=== PATIENT | male | born 1995 | race Caucasian/White ===

== ENCOUNTER 2020-07-03 10:44 | Emergency (ER) | payer BC, SELFPAY ==
--- NOTE | ~2020-07-03 | XR_ITS ---
EXAMINATION: XR finger 3rd LT min 2V DATE: 07/03/2020 11:44 INDICATION: 2 days of swelling at the left third proximal interphalangeal joint TECHNIQUE: Dorsal palmar, lateral and 2 oblique views of the left third digit were obtained COMPARISON: None FINDINGS: Alignment is normal. No fracture. Joint spaces are normal. Nonspecific soft tissue tissue swelling in the third digit centered about the proximal interphalangeal joint. No soft tissue gas or radiopaque foreign bodies. IMPRESSION: 1. No osseous abnormality. Reviewed, dictated and finalized at location A. IMPRESSION: 1. No osseous abnormality.
[2020-07-03 11:33] VITALS: BP 140/72; PULSE 81; RESP 12; TEMP 36.6; O2SAT 99
--- NOTE | 2020-07-03 11:57 | ED.GENADULT ---
HPI - General Adult General Chief complaint: Extremity Injury, Upper Stated complaint: Extremity injury,finger Time Seen by Provider: 07/03/20 11:58 Source: patient Mode of arrival: ambulatory Limitations: no limitations History of Present Illness HPI narrative: 25-year-old male patient presents to the [facility] with complaints of middle finger pain since yesterday. [place] states that he was on a rope swing and got his middle finger caught on the second knob of the rope swing and states that he lost his wing coverer and fell and that his finger got caught. Patient states that he has been icing it and taking some Tylenol for the pain. Patient concerned about it being broken since there is bruising present. Patient states he has limited range of motion especially to the middle knuckle area. Patient denies any numbness or tingling to the finger. Patient is left-hand dominant. Related Data Home Medications Medication Instructions Recorded Confirmed atomoxetine [Strattera] 40 mg PO DAILY 07/03/20 07/03/20 Allergies Allergy/AdvReac Type Severity Reaction Status Date / Time amoxicillin [From Augmentin] AdvReac Diarrhea Verified 07/03/20 12:04 clavulanic acid AdvReac Diarrhea Verified 07/03/20 12:04 [From Augmentin] Review of Systems Review of Systems: Narrative: CONSTITUTIONAL: Denies fever, chills, or sweats. EYES: Denies visual changes, redness, or discharge. ENT: Denies rhinorrhea, congestion, sore throat, or otalgia. CARDIOVASCULAR: Denies chest pain, palpitations, or edema. RESPIRATORY: Denies cough or dyspnea. GASTROINTESTINAL: Denies abdominal pain, nausea, vomiting, or diarrhea. GENITOURINARY: Denies dysuria or hematuria. SKIN: Denies rash or itching. MUSCULOSKELETAL: Denies back pain, joint pain, or myalgia. Positive left third finger pain NEUROLOGIC: Denies headache, numbness, or weakness. PSYCHIATRIC: Denies anxiety or depression. PMFSH Social History Social History Smoking status: Current every day smoker Alcohol intake: current Gender identity (if verbalized by the patient): Female Exam Narrative: Exam Narrative: GENERAL: Well-appearing, well-nourished, and in no acute distress. HEAD: Normocephalic, atraumatic. EYES: PERRLA and EOMI. ENT: Nares clear, no rhinorrhea or epistaxis. Mucous membranes moist. NECK: Supple. No lymphadenopathy CHEST: Clear to auscultation. No respiratory distress. HEART: Regular rate and rhythm. No murmur heard. Normal peripheral pulses. ABDOMEN: Soft, nontender, nondistended, normal active bowel sounds. EXTREMITIES: The L hand is without obvious asymmetry or deformity when compared to the R hand. The left third digit has swelling to the middle phalange E, PIP joint with slight erythema over this joint. No warmth present. Patient has decreased range of motion to the middle PIP joint and tightness. Normal range of motion to the DIP joint and normal sensation to the distal portion of the finger. No open wounds, nail avulsion, tissue avulsion, partial or complete amputation, subungual hematoma, bony deformity. Normal cascade of fingers except for the left third digit. Normal flexion and extension of all other fingers. FDS and FDP intact aganist restistance. Pulses and cap refill. SKIN: Warm, dry, no rash. NEURO: No focal deficits. Alert and oriented x3. Course Vital Signs Vital signs: Vital Signs Temperature 36.6 C 07/03/20 11:33 Pulse Rate 81 07/03/20 11:33 Respiratory Rate 12 07/03/20 11:33 Blood Pressure 140/72 07/03/20 11:33 Pulse Oximetry 99 07/03/20 11:33 Temperature 36.6 C 07/03/20 11:33 Pulse Rate 81 07/03/20 11:33 Respiratory Rate 12 07/03/20 11:33 Blood Pressure 140/72 07/03/20 11:33 Pulse Oximetry 99 07/03/20 11:33 Vital signs reviewed. The patient has been informed that they may have pre-hypertension or Hypertension based on a BP reading in the department. I recomm
[2020-07-03 12:07] VITALS: BP 108/72; PULSE 96; RESP 16; TEMP 36.6; O2SAT 100
== END 2020-07-03 12:16 | disposition home or self-care (01) ==
PROVIDERS: Emergency Provider Nurse Practitioner Family
DX: S63.633A Sprain of interphalangeal joint of left middle finger, initial encounter (principal); X58.XXXA Exposure to other specified factors, initial encounter; F17.200 Nicotine dependence, unspecified, uncomplicated
CPT/HCPCS: 29130; 73140; 99213; G0463

== ENCOUNTER 2020-11-01 08:00 | Outpatient (RCR) | payer BC, SELFPAY ==
--- NOTE | 2020-08-25 09:02 | OTOPEVAL ---
OCCUPATIONAL THERAPY INITIAL EVALUATION: 08/25/2020 Thank you for referring Nader Valentino to [facility].? The patient is scheduled to be seen for therapy? 2 x/week for 6 weeks. Please review, sign, date and return this plan of care STACY. I agree with and certify that the following plan of care is medically necessary. Referring Physician Date Attending Provider: Shaheen Rodriguez MD *OT Outpatient Evaluation Start: 08/25/20 07:41 Freq: Status: Active Protocol: Document 08/25/20 07:54 KJL (Rec: 08/25/20 09:01 KJL [id number]) Therapy Assessment Status Assessment Status Assessment Status Evaluation Evaluation Information Problem Diagnosis Boutonniere of L UE digit 3 Onset 07/02/2020 Cause Fall Additional Evaluation Detail Pt jumped from rope swing and finger afterward becoming swollen and sore. Pt went to ER and got an x-ray done which showed no acute fracture. Boutonniere deformity started next day on 07/03/2020. 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 Pt reports is still painful occasionally and if finger is hit on anything finger becomes more sore and painful. Pt reports painful when attempting PIP extension, DIP extension, DIP flexion. 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 Activity of Daily Living Ability Independent Indoor/Home Mobility Independent Community Mobility Independent Stairs Ability Independent Functional Cognition (Planning, Shopping Independent , Taking Medications) Driving Yes Home Setting Home Type House Living Situation With Parent Support Available Local Family Support Mobility Assistive Devices (Used Last 3 None Months) Pain Assessment Timing of Pain Assessment Timing of Pain Assessment Assessment Self Report Self Report Pain Level 0 Pain Score Pain Score 0: Self Report Upper Extremity Range of Motion General Upper Extremity Range of Motion Reason Not Measured WNL/Left,WNL/Right Gross Upper Extremity Range of Motion Pt bilateral
--- NOTE | 2020-09-05 08:14 | PCOTNOTE ---
Patient cancelled today due to following up with MD today. Will see later this week on Saturday.
--- NOTE | 2020-10-05 09:27 | OTOPEVAL ---
OCCUPATIONAL THERAPY RE-EVALUATION REPORT 10/05/2020 Patient presents after 6 weeks of PIP immobilization in extension for treatment of central tendon injury. At rest his finger is straight and he does have stiffness when trying to flex the finger into a full fist or hook fist. Today we discussed a splint weaning schedule over the next 4 weeks. 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 Plan to have patient follow up in 4 weeks to evaluate for discharge. No treatments have been scheduled during these 4 weeks unless the patient needs to return for splint modifications if the swelling in his finger changes. Thank you for referring Nader Valentino to [facility].? The patient is scheduled to be seen for therapy? 0-1x/week for 4 weeks. Re-evaluation scheduled fro 11/01/20. Please review, sign, date and return this Re-Evaluation Report STACY. I agree with and certify that the following plan of care is medically necessary. Referring Physician Date Referring Provider: Shaheen Rodriguez MD *OT Outpatient Re-Evaluation Evaluation Information Diagnosis Boutonniere of L hand, digit 3 Onset 07/02/2020 Subjective Information Nader has been wearing a Query Text:As Reported By Patient/ splint over the left MF PIP Family joint in 0* flexion x6 weeks. In the beginning he had difficulty wearing the splint when working or playing video games. The past 4 weeks he has been very compliant with immobilization. He states his finger is stiff. Pain Assessment Timing of Pain Assessment Timing of Pain Assessment Re-assessment Pain Scale Pain Scale Used Numeric (1 - 10) Self Report Pain Assessment Left Finger, Middle Reported Pain Level 0 Other Pain Description Stiff Lowest Pain Intensity 0 Greatest Pain Intensity 4 Other Pain Aggravating Factors Cold weather Pain Score Pain Score 0: Self Report Upper Extremity Range of Motion Finger Range of Motion Left Middle Finger MCP Joint Flexion - Active 90 Middle Finger MCP Joint Extension - 0 Active Middle Finger PIP Joint Flexion - Active 85 Middle Finger PIP Joint Extension - 0 Active Middle Finger DIP Joint Flexion - Active 65 Middle Finger DIP Joint Extension - 0 Active Middle Finger Tip to Distal Palmar 2 Crease - Active Finger Range of Motion Comments At rest his MF is straight at the PIP and DIP joints. This has improved from 35* flexion at the PIP and 15* hyperextension at the DIP at the start of care. Hand Media Consultant Outside Sales/Pinch Strength Assessment Hand Left Media Consultant Outside Sales Strength (lbs)
--- NOTE | 2020-11-01 08:29 | OTOPEVAL ---
OCCUPATIONAL THERAPY DISCHARGE NOTE 11/01/2020 Thank you for referring Nader Valentino to [facility].? The patient is being discharged today from OT. He has had no return in an extension lag in the PIP joint of the left middle finger and has no functional limitations at this time. He is independent with all materials and with pain management. Please review, sign, date and return this discharge note STACY. I agree with and certify that the following plan of care is medically necessary. Referring Physician Date Referring Provider: Shaheen Rodriguez MD Assessment Status Discharge Problem Diagnosis Boutonniere of L hand, digit 3 Onset 07/02/2020 Subjective Information Nader has been wearing a Query Text:As Reported By Patient/ splint over the left MF PIP Family joint in 0* flexion x6 weeks and has been weaning off the splint x4 weeks. He states he is down to wearing the splint about 50% of the day - he sleeps with it on, leaves it off for most of the day, and puts its back on later in the day. He states at work he uses his hands a lot for gripping, lifting, and carrying. He reports no functional limitations, except some instances of pain in the PIP of the joint with gripping. He also notes that cold exacerbates his pain. Pain Assessment Timing of Pain Assessment Timing of Pain Assessment Re-assessment Pain Scale Pain Scale Used Numeric (1 - 10) Self Report Pain Assessment Left Finger, Middle Reported Pain Level 5 Pain Description Aching Other Pain Description stiff Lowest Pain Intensity 0 Greatest Pain Intensity 10 Pain Score Pain Score 5: Self Report Additional Pain Score Comments Patient reports an instance of 10/10 pain due to accidentally hitting his hand/ MF against his truck. Interventions Used Interventions Used By Clinicians Education Upper Extremity Range of Motion Finger Range of Motion Left Middle Finger MCP Joint Flexion - Active 90 Middle Finger MCP Joint Extension - 0 Active Middle Finger PIP Joint Flexion - Active 85 Middle Finger PIP Joint Extension - 0 Active Middle Finger DIP Joint Flexion - Active 75 Middle Finger DIP Joint Extension - -5 Active Middle Finger Tip t
== END 2020-11-10 15:40 | disposition home or self-care (01) ==
LOC: ANHOT 08:00
PROVIDERS: Visit Provider Plastic Surgery
DX: M20.022 Boutonniere deformity of left finger(s) (principal)
CPT/HCPCS: 97018; 97110; 97140; 97165; L3921; L3933

== ENCOUNTER 2021-05-14 10:04 | Emergency (ER) | payer BC, SELFPAY ==
[2021-05-14 10:13] VITALS: BP 145/83; PULSE 82; RESP 16; TEMP 36.5; O2SAT 99
--- NOTE | 2021-05-14 10:20 | ED.BACK ---
HPI - Back Pain/Injury General Chief Complaint: Back Pain/Injury Stated Complaint: back pain Time Seen by Provider: 05/14/21 10:20 Source: patient, RN notes reviewed and old records reviewed Mode of arrival: ambulatory Limitations: no limitations History of Present Illness HPI Narrative: 26-year-old male presents to the [facility] with complaints of back pain, patient denies any injury. States he was at work when he felt a strain in his lower back. No trauma. No loss or retention of bowel or bladder. No numbness or tingling in extremities. Walks with a slower gait due to lower back pain. Denies any past medical or surgical history. States he took Tylenol yesterday approximately 4 PM, no other treatment MD elicited complaint: back pain Related Data Allergies Allergy/AdvReac Type Severity Reaction Status Date / Time amoxicillin [From Augmentin] AdvReac Diarrhea Verified 07/03/20 12:04 clavulanic acid AdvReac Diarrhea Verified 07/03/20 12:04 [From Augmentin] Review of Systems Review of Systems: All systems reviewed & are unremarkable except as noted in HPI and below Constitutional: Constitutional: Reports no additional constitutional complaints, Denies chills and Denies fever(s) Eyes: Eyes: Reports no additional eye complaints Cardiovascular: Cardiovascular: Reports no additional cardiovascular complaints and Denies chest pain Respiratory: Respiratory: Reports no additional respiratory complaints, Denies cough, Denies dyspnea and Denies wheezing Gastrointestinal: Gastrointestinal: Reports no additional gastrointestinal complaints, Denies abdominal pain, Denies nausea and Denies vomiting Genitourinary: Genitourinary: Reports no additional male genitourinary complaints, Denies urinary frequency and Denies urinary incontinence Musculoskeletal: Musculoskeletal: Reports as per HPI and Reports back pain (Lumbar) Integumentary/Breasts: Skin/Breast: Reports system reviewed and no additional complaints, except as docu, Denies erythema and Denies rash Neurologic: Reports system reviewed and no additional complaints, except as documented, Denies headache(s), Denies focal weakness, Denies numbness and Denies weakness Psychiatric: Psychiatric: Reports no additional psychiatric complaints Allergic/Immunologic: Allergic/Immunologic: Reports no additional allergic/immunologic complaints PMFSH Social History Social History Smoking status: Current every day smoker Alcohol intake: current Gender identity (if verbalized by the patient): Male Comments At the time of my signature, I reviewed and agree with the nursing past medical, surgical, social, and family history. There is no relevant family history pertinent to the patient complaint. Exam Const: General: healthy appearing, no acute distress and alert Nutritional Appearance: well nourished and obese Orientation/consciousness: patient oriented x3 Limitations: no limitations HENMT: Head: normal to inspection Eyes: Pupils: Equal, round and reactive pupils present Neck: Neck: normal visual inspection, no lymphadenopathy and no meningeal signs Chest: Chest palpation & inspection: normal inspection of the chest Resp: Effort & Inspection: normal respiratory effort and no use of accessory muscles Auscultation: clear to auscultation bilaterally, no crackles, no rales, no rhonchi and no wheezes Cardio: Rate: regular rate Rhythm: regular rhythm GI: GI Palp: Yes Soft to palpation and No Tenderness to palpation present (GI) Back/Spine/Pelvis: Back: no CVA tenderness Cervical Spine: normal cervical lordosis, cervical ROM normal and No cervical muscular tenderness Thoracic/Lumbar Spine: thoracic and lumbar spine normal to inspection, No Thoracic/lumbar spine scar(s), straight leg raise negative bilaterally, pain with thoraco-lumbar ROM (Lumbar right worse than left), paraspinal muscle tenderness on the right greater than left, No
== END 2021-05-14 10:37 | disposition home or self-care (01) ==
PROVIDERS: Emergency Provider Nurse Practitioner
DX: S39.012A Strain of muscle, fascia and tendon of lower back, initial encounter (principal); X58.XXXA Exposure to other specified factors, initial encounter; Y99.0 Civilian activity done for income or pay; F17.210 Nicotine dependence, cigarettes, uncomplicated
CPT/HCPCS: 99213; G0463

== ENCOUNTER 2021-11-20 22:04 | Emergency (ER) | payer BC, SELFPAY ==
[2021-11-20 22:06] VITALS: BP 149/95; PULSE 83; RESP 16; TEMP 36.1; O2SAT 98
--- NOTE | 2021-11-21 00:12 | PC.NURSE ---
Called pt for VS, no response at this time.
--- NOTE | 2021-11-21 00:44 | ED.EYEPROB ---
HPI - Eye Problem General Chief complaint: Eye Problems Stated complaint: LEFT EYE PROBLEM Time Seen by Provider: 11/21/21 00:19 Source: patient and family Mode of arrival: ambulatory Limitations: no limitations History of Present Illness HPI Narrative: 26-year-old otherwise healthy here with the complaints of left eye irritation for the past few hours. Patient states that he was wearing contacts all day long when he took his contacts out his eyes started tearing and having significant pain. chief complaint: eye pain and eye redness Onset (ago): hour(s) (4) Onset description: sudden Duration: constant Location: left eye Eye Symptoms: redness Place: home Mechanism: none Severity: mild If Pain, Quality: aching Associated symptoms: none Related Data Allergies Allergy/AdvReac Type Severity Reaction Status Date / Time amoxicillin [From Augmentin] AdvReac Diarrhea Verified 11/20/21 22:09 clavulanic acid AdvReac Diarrhea Verified 11/20/21 22:09 [From Augmentin] Review of Systems Review of Systems: All systems reviewed & are unremarkable except as noted in HPI and below Constitutional: Constitutional: Reports no additional constitutional complaints Eyes: Eyes: Reports no additional eye complaints ENT: Reports system reviewed and no additional complaints, except as documented Cardiovascular: Cardiovascular: Reports no additional cardiovascular complaints Respiratory: Respiratory: Reports no additional respiratory complaints Gastrointestinal: Gastrointestinal: Reports no additional gastrointestinal complaints Musculoskeletal: Musculoskeletal: Reports no additional musculoskeletal complaints [facility] Social History Social History Smoking status: Current every day smoker Alcohol intake: current Gender identity (if verbalized by the patient): Male Exam Narrative: GENERAL: Well-appearing, well-nourished, and in no acute distress. HEAD: Normocephalic, atraumatic. EYES: PERRLA and EOMI. left eye is tearing conjunctiva is erythematous is a small corneal abrasion between 3 and 5 o'clock position . NECK: Supple. CHEST: Clear to auscultation. No respiratory distress. HEART: Regular rate and rhythm. No murmur heard. Normal peripheral pulses EXTREMITIES: Normal range of motion. No edema. SKIN: Warm, dry, no rash. NEURO: No focal deficits. Alert and oriented x3. PSYCH: Normal mood and affect. Course Vital Signs Vital signs: Vital Signs Temperature 36.1 C L 11/20/21 22:06 Pulse Rate 83 11/20/21 22:06 Respiratory Rate 16 11/20/21 22:06 Blood Pressure 149/95 H 11/20/21 22:06 Pulse Oximetry 98 11/20/21 22:06 Temperature 36.1 C L 11/20/21 22:06 Pulse Rate 83 11/20/21 22:06 Respiratory Rate 16 11/20/21 22:06 Blood Pressure 149/95 H 11/20/21 22:06 Pulse Oximetry 98 11/20/21 22:06 Discharge Plan Discharge Clinical Impression: Corneal abrasion Qualifiers: Encounter type: initial encounter Laterality: left Qualified Code(s): S05.02XA - Injury of conjunctiva and corneal abrasion without foreign body, left eye, initial encounter Patient Disposition: Home, Self-Care Condition: Stable Instructions: Antibiotic Form, Corneal Abrasion (DC) Additional Instructions: contact your eye doctor. do not wear your contacts till cleared by your eye doctor. Prescriptions: New tobramycin 0.3 % drops 1 drp LEFT EYE Q4H Qty: 5 RF: 0 Follow-up/Referrals: PHYSICIAN,PRIVATE BRANCH EXCHANGE SERVICE ADVISOR [Primary Care Provider] - Stand Alone Forms: Work/School Release IP Time of Disposition: 00:48
[2021-11-21] MEDS: TETRACAINE HCL 0.5% OPHTH SOLN 4 ML BTL 1 DROP EACH EYE (00:47)
[2021-11-21] MEDS: FLUORESCEIN SOD 1 MG/STRIP EACH EYE (00:47)
[2021-11-21 01:28] VITALS: BP 123/86; PULSE 74; RESP 18; O2SAT 100
== END 2021-11-21 01:31 | disposition home or self-care (01) ==
PROVIDERS: Emergency Provider Family Medicine
DX: S05.02XA Injury of conjunctiva and corneal abrasion without foreign body, left eye, initial encounter (principal); F17.200 Nicotine dependence, unspecified, uncomplicated; X58.XXXA Exposure to other specified factors, initial encounter
CPT/HCPCS: 99283

== ENCOUNTER 2022-02-03 12:20 | Outpatient (CLI) | payer BC, SELFPAY ==
--- NOTE | ~2022-02-03 | MR_ITS ---
EXAMINATION: MR knee RT wo con DATE: 02/03/2022 13:14 INDICATION: Sprain of anterior cruciate ligament of right knee. Right knee pain. TECHNIQUE: Magnetic resonance imaging (MRI) of the right knee was performed without intravenous contr ast. Sequences included axial PD-weighted FS FSE, coronal PD-weighted FSE and PD-weighted FS FSE, sag ittal PD-weighted FSE, and sagittal T2-weighted FS FSE. COMPARISON: None. FINDINGS: Medial compartment: Medial meniscus is normal. Medial compartment cartilage is normal. Lateral compartment: Lateral meniscus is normal. Lateral compartment cartilage is normal. Patellofemoral compartment: Patellar cartilage is normal. Trochlear cartilage is normal. Ligaments and tendons: The anterior and posterior cruciate ligaments are normal. Medial collateral ligament and lateral jaime ateral ligament complex are normal. There is mild patellar tendinopathy. Fluid: There is no knee joint effusion. IMPRESSION: 1. Normal anterior cruciate ligament. Reviewed, dictated and finalized at location E.
== END 2022-02-03 12:21 | disposition home or self-care (01) ==
LOC: ANHIMG 12:25
PROVIDERS: PCP Family Medicine; Visit Provider Physician Assistant Medical
DX: S83.511A Sprain of anterior cruciate ligament of right knee, initial encounter (principal); M25.561 Pain in right knee
CPT/HCPCS: 73721

== ENCOUNTER 2023-12-19 13:50 | Emergency (ER) | payer BC, SELFPAY ==
[2023-12-19 14:00] VITALS: BP 129/82; PULSE 94; RESP 20; TEMP 37.4; O2SAT 100
--- NOTE | 2023-12-19 14:06 | ED.DIZZY ---
HPI - Dizziness General Chief Complaint: Dizziness Stated Complaint: DIZZY/LIGHT HEADED Source: patient, RN notes reviewed and old records reviewed Mode of arrival: ambulatory Limitations: no limitations History of Present Illness HPI Narrative: 28-year-old male patient presents to [facility] with complaints dizziness, blurred vision, ringing in ears and feeling like he was going to pass out earlier today patient. Patient states this occurred 3 times today. Patient denies any other complaints. Patient denies nausea, vomiting, diarrhea. Patient denies recent illness. MD elicited complaint: dizziness and near syncope Timing: sudden onset Severity: moderate Description: difficulty walking and near-syncope Relieving factors: rest Associated symptoms: tinnitus Associated neuro symptoms: vision changes Related Data Allergies Allergy/AdvReac Type Severity Reaction Status Date / Time amoxicillin [From Augmentin] AdvReac Diarrhea Verified 12/19/23 13:58 clavulanic acid AdvReac Diarrhea Verified 12/19/23 13:58 [From Augmentin] Review of Systems Constitutional: Constitutional: Reports no additional constitutional complaints, Denies body ache(s), Denies chills, Denies fatigue, Denies fever(s) and Denies headache(s) Eyes: Eyes: Reports no additional eye complaints, Denies blurry vision and Reports change in vision ENT: Reports system reviewed and no additional complaints, except as documented, Denies vertigo, Reports dizziness, Denies ear discharge, Denies otalgia, Denies facial pain, Denies headache(s), Reports nasal congestion, Denies nasal discharge, Denies sinus pain, Denies sinus pressure and Denies sore throat Cardiovascular: Cardiovascular: Reports no additional cardiovascular complaints, Denies chest pain, Denies chest pain at rest, Denies rapid heart rate and Denies dyspnea Respiratory: Respiratory: Reports no additional respiratory complaints, Denies chest congestion, Denies cough, Denies pain on inspiration, Denies pain with cough and Denies dyspnea Gastrointestinal: Gastrointestinal: Denies abdominal pain, Denies diarrhea, Denies nausea and Denies vomiting Integumentary/Breasts: Skin/Breast: Denies rash Neurologic: Reports system reviewed and no additional complaints, except as documented, Denies vertigo, Denies dizziness and Denies headache(s) Endocrine: Endocrine: Denies fatigue [facility] Social History Social History Alcohol intake: current Gender identity (if verbalized by the patient): Male Comments At the time of my signature, I reviewed and agree with the nursing past medical, surgical, social, and family history. There is no relevant family history pertinent to the patient complaint. Exam Const: General: cooperative, healthy appearing, no acute distress and well nourished Nutritional Appearance: well nourished Orientation/consciousness: patient oriented x3 Limitations: no limitations HENMT: Head: normal to inspection and normocephalic Ears: external ears normal, mastoids normal, Abnormal EAC present and TM abnormal with fluid behind the TM on the left Face/Nose/Sinus: normal facial exam Face and sinus: normal facial exam Mouth: Yes Normal oral and palatal mucosa present, Yes oropharynx normal and Yes moist mucous membranes Throat: tonsils normal, uvula midline and no uvular edema Eyes: General: appearance normal, both eyes and all related structures Sclera: sclerae normal Pupils: Equal, round and reactive pupils present Resp: Effort & Inspection: normal respiratory effort, able to speak in complete sentences, no audible wheezes, no cough, no respiratory distress and no retractions Auscultation: clear to auscultation bilaterally, no crackles, no rales, no rhonchi and no wheezes Cardio: Rate: regular rate Rhythm: regular rhythm Skin: General skin exam: normal color and no rashes or lesions noted Neuro: General: patient oriented x3 Cranial n
== END 2023-12-19 14:19 | disposition short-term general hospital (02) ==
PROVIDERS: Emergency Provider Registered Nurse
DX: R55 Syncope and collapse (principal); R42 Dizziness and giddiness; J45.909 Unspecified asthma, uncomplicated
CPT/HCPCS: 99211; 99212; G0463

== ENCOUNTER 2023-12-19 14:38 | Emergency (ER) | payer BC, SELFPAY ==
[2023-12-19 14:42] VITALS: BP 139/89; PULSE 89; RESP 20; TEMP 36.4; O2SAT 100
--- NOTE | 2023-12-19 14:46 | ECG_ITS ---
Measurements Intervals [place] Rate: 77 P: 60 ND: 133 QRS: 85 QRSD: 94 T: 55 QT: 340 QTc: 386 Interpretive Statements SINUS RHYTHM NORMAL ECG NO PREVIOUS ECG AVAILABLE FOR COMPARISON Electronically Signed On 12-20-2023 15:00:03 GROUP ACTIVITIES AIDE by Miguel Florentino M.D.
[2023-12-19 15:34] LABS: Influenza A QL RT-PCR Negative (Negative); Influenza B QL RT-PCR Negative (Negative); RSV RNA, RT-PCR Negative (Negative); SARS-CoV-2 RNA PCR Negative (Negative)
--- NOTE | 2023-12-19 17:42 | ED.GENADULT ---
HPI - General Adult General Chief complaint: Syncope Stated complaint: near syncope Time Seen by Provider: 12/19/23 17:36 History of Present Illness HPI narrative: Patient is a 28-year-old male who presents to the emergency department this afternoon after a near syncopal episode at work. Patient states that he has been having some nasal congestion which he initially attributed to allergies but today while he was at work he felt lightheaded as he was going to pass out. Patient went to go sit down in his car and felt a little bit better. When he got up to go back to work, he felt lightheaded again and finally decided to go into the urgent care. Urgent care sent the patient here for further evaluation. Patient is currently denying any chest pain or shortness of breath. He is complaining of bilateral lower back pain. He denies any history of cardiovascular disease including arrhythmias and any family history of sudden cardiac . Remainder of history of present illness and review of systems negative unless stated otherwise in HPI. There are no other modifying, alleviating, or precipitating factors at this time. Related Data Allergies Allergy/AdvReac Type Severity Reaction Status Date / Time amoxicillin [From Augmentin] AdvReac Diarrhea Verified 12/19/23 13:58 clavulanic acid AdvReac Diarrhea Verified 12/19/23 13:58 [From Augmentin] Review of Systems Review of Systems: All systems are reviewed and are negative unless stated otherwise in the HPI. [facility] Social History Social History Alcohol intake: current Gender identity (if verbalized by the patient): Male Comments Denies any significant past medical and surgical history. Denies any family history. Drinks occasionally, denies any tobacco use or illicit drug use. Exam Narrative: General: Alert, awake, afebrile, in no acute distress. HEENT: PERRL, no rhinorrhea, no post nasal drip, oropharynx clear. Neck: Trachea midline, no JVD, no lymphadenopathy. Cardiovascular: Regular rate and rhythm, no murmurs, rubs or gallops, no peripheral edema. Respiratory: Clear to auscultation bilaterally, no tachypnea, no wheezing, no rhonchi, no rubs, no respiratory distress. Abdomen: Soft, nontender, nondistended, no rebound, no guarding, no peritoneal signs. Musculoskeletal: No joint swelling or deformity, normal muscle tone. Back: No midline cervical, thoracic, or lumbar tenderness to palpation, no step-offs or deformities, paraspinal reproducible musculoskeletal tenderness to palpation. Skin: No rashes or petechia, no signs of infection. Psychiatric: Alert and oriented, normal behavior and judgment for situation. Neurological: Alert and oriented to person, place, and time. Follows all commands. No focal deficits, speech is clear and fluent. Course Vital Signs Vital signs: Vital Signs Temperature 97.5 F L 12/19/23 14:42 Pulse Rate 89 12/19/23 14:42 Respiratory Rate 20 12/19/23 14:42 Blood Pressure 139/89 12/19/23 14:42 Pulse Oximetry 100 12/19/23 14:42 Oxygen Delivery Room Air 12/19/23 14:42 Temperature 97.5 F L 12/19/23 14:42 Pulse Rate 89 12/19/23 14:42 Respiratory Rate 20 12/19/23 14:42 Blood Pressure 139/89 12/19/23 14:42 Pulse Oximetry 100 12/19/23 14:42 Oxygen Delivery Room Air 12/19/23 14:42 Medical Decision Making MDM Narrative Medical decision making narrative: The patient was evaluated by myself in the emergency department. History is obtained from patient who is an independent historian and physical exam was performed. External medical records were reviewed at this time. IV was established and pertinent tests were ordered. Patient was administered a 1 L fluid bolus with normal saline. EKG was obtained which revealed sinus rhythm rate of 77 beats per minute. No ST changes, T wave inversions or evidence of acute ischemia. EKG was independently interpret
[2023-12-19 18:15] LABS: Basophils Absolute Auto 0.1 K/mm3 (0.0-0.1); Eosinophils Absolute Auto 0.2 K/mm3 (0-0.3); Eosinophils Percent Auto 2.2 % (0-4.4); Hematocrit 44.3 % (42.0-52.0); Immature Granulocyte Absolute 0.05 K/mm3 (0.00-0.031); Immature Granulocyte Percent A 0.5 % (0-0.5); Lymphocytes Absolute Auto 2.21 K/mm3 (0.9-3.2); Lymphocytes Percent Auto 20.1 % (18.3-44.2); Mean Corpuscular HGB Conc 33.9 g/dl (32-36); Mean Corpuscular Hemoglobin 30.4 pg (26-34); Mean Corpuscular Volume 89.7 fl (80-100); Mean Platelet Volume 9.8 fl (7.4-10.4); Monocytes Absolute Auto 0.9 K/mm3 (0.1-0.6); Monocytes Percent Auto 7.7 % (2.6-8.5); Neutrophils Absolute Auto 7.5 K/mm3 (1.3-6.7); Neutrophils Percent Auto 68.5 % (45.5-73.1); Platelet Count Result 277 k/mm3 (150-375); Red Blood Count 4.94 M/mm3 (4.6-6.20); Red Cell Distribution Width 11.6 % (11.5-14.5)
[2023-12-19 18:17] LABS: Appearance Urine Clear (Clear); Bilirubin Urine Negative (Negative); Blood Urine Negative (Negative); Color Urine Yellow (Yellow); Glucose Urine UA Negative (Negative); Ketones Urine Negative (Negative); Leukocyte Esterase Ur Negative LEU/UL (Negative); Nitrate Urine Negative (Negative); Protein Urine Negative (Negative); Specific Grav Ur 1.006 (1.001-1.035)
[2023-12-19 18:18] LABS: Add Urine Microscopic? NO
[2023-12-19 18:21] LABS: Alanine Aminotransferase 14 U/L (6-50); Alkaline Phosphatase 58 U/L (38-126); Anion Gap 6 mmol/L (8-16); Aspartate Amino Transferase 24 U/L (17-59); Bilirubin,Total 0.7 mg/dL (0.2-1.3); Blood Urea Nitrogen 11 mg/dL (9-20); Calcium 9.4 mg/dL (8.4-10.2); Carbon Dioxide 28 mmol/L (22-30); Chloride 105 mmol/L (98-107); Estimated CRCL calculation 87 ml/min; Estimated Glomerular Filt Rate > 60; Glucose 86 mg/dL (65-110); Magnesium 2.4 mg/dL (1.6-2.3); Potassium 3.7 mmol/L (3.4-5.0); Sodium 139 mmol/L (137-145)
[2023-12-19] MEDS: SODIUM CHLORIDE 0.9% IV 1,000 ML 999 ML IV CONT (18:43)
[2023-12-19 19:30] VITALS: BP 131/83; PULSE 73; RESP 15; O2SAT 100
[2023-12-19 20:08] VITALS: BP 132/80; PULSE 79; RESP 13; O2SAT 100
== END 2023-12-19 20:10 | disposition home or self-care (01) ==
PROVIDERS: Student in an Organized Health Care Education/Training Program; Emergency Provider Emergency Medicine
DX: R55 Syncope and collapse (principal); S39.012A Strain of muscle, fascia and tendon of lower back, initial encounter; Z20.822 Contact with and (suspected) exposure to COVID-19; Z86.16 Personal history of COVID-19; X58.XXXA Exposure to other specified factors, initial encounter
CPT/HCPCS: 36415; 80053; 81003; 83735; 85025; 87637; 93005; 96360; 99283; J7030

== ENCOUNTER 2023-12-22 21:05 | Emergency (ER) | payer BC, SELFPAY ==
--- NOTE | ~2023-12-22 | XR_ITS ---
Portable chest x-ray Comparison: 11/10/2018 Clinical History: Dyspnea Findings: Lungs are clear, without focal consolidation or pleural effusion. Cardiomediastinal silho uette is stable. Bones and soft tissues are unremarkable. Impression: Normal chest. Reviewed, dictated and finalized at location . 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
--- NOTE | ~2023-12-22 | CT_ITS ---
Non-contrast CT scan of the Abdomen and Pelvis Clinical indication: Epigastric pain Technique: 2.5 mm axial scans were obtained through the abdomen and pelvis without intravenous or or al contrast. Dose reduction technique was used on this scan by utilizing automated exposure control a nd iterative reconstruction technique. The dose-length product (DLP) was 550.53 mGy-cm. Findings: Images through the lung bases reveal no abnormalities. There is no evidence of renal or ureteral calculi. The kidneys and the ureters are nondilated. The liver, spleen, pancreas, gallbladder, and adrenals appear normal. There is no aortic aneurysm. There is no evidence of bowel obstruction. Possible wall thickening of several small bowel loops in l eft abdomen. Images through the pelvis were performed. There is no evidence of ascites or lymphadenopathy. Urinary bladder unremarkable. No pelvic mass. Impression: Possible wall thickening of left-sided small bowel loops. Correlate for nonspecific enteritis. Reviewed, dictated and finalized at [facility]. ONAL GUIDE Impression: Possible wall thickening of left-sided small bowel loops. Correlate for nonspec ific enteritis.
[2023-12-22 21:06] VITALS: BP 165/94; PULSE 93; RESP 18; TEMP 36.6; O2SAT 98
--- NOTE | 2023-12-22 21:52 | ED.GENADULT ---
HPI - General Adult General Chief complaint: Unspecified Stated complaint: clammy hands, shaky, upper abdomen pain, back pain Time Seen by Provider: 12/22/23 21:34 Source: patient Mode of arrival: ambulatory Limitations: no limitations History of Present Illness HPI narrative: This is a 28-year-old male who presents to the ED with multiple complaints. Reports for the past 3 days he has had lower back aches as well as epigastric pain, hand tremors, dyspnea and epigastric pain. Reports he was seen in this ER a couple of days ago and had a negative workup. He was given muscle relaxers for back aches and has been taking those. Reports Related Data Allergies Allergy/AdvReac Type Severity Reaction Status Date / Time amoxicillin [From Augmentin] AdvReac Diarrhea Verified 12/19/23 13:58 clavulanic acid AdvReac Diarrhea Verified 12/19/23 13:58 [From Augmentin] Review of Systems Review of Systems: All systems as dictated in [facility] Social History Social History Alcohol intake: current Gender identity (if verbalized by the patient): Male Course Vital Signs Vital signs: Vital Signs Temperature 97.8 F 12/22/23 21:06 Pulse Rate 93 12/22/23 21:06 Respiratory Rate 18 12/22/23 21:06 Blood Pressure 165/94 H 12/22/23 21:06 Pulse Oximetry 98 12/22/23 21:06 Oxygen Delivery Room Air 12/22/23 21:06 Temperature 97.8 F 12/22/23 21:06 Pulse Rate 99 12/22/23 23:44 Respiratory Rate 16 12/22/23 23:44 Blood Pressure 143/87 H 12/22/23 23:44 Pulse Oximetry 97 12/22/23 23:44 Oxygen Delivery Room Air 12/22/23 22:17 Medical Decision Making [facility] Narrative Medical decision making narrative: This is a 28-year-old male who presents to the ED with for multiple complaints. Second visit in 2 days. Seems to be the most concerned about epigastric pain as well as lower back pain. Vitals are normal. Exam shows mild epigastric tenderness but otherwise benign. ECG shows normal sinus rhythm. Lab work grossly unremarkable including negative lipase Viral swabs negative Chest x-ray is without acute findings. CT abdomen and pelvis with IV contrast: Moderate wall thickening of small bowel in the left abdomen, correlate for enteritis.. Overall symptoms are most likely consistent with gastroenteritis. He improved here with fluids, morphine, Zofran and Toradol. Pt will be discharged in stable condition. Return precautions given and supportive measures discussed. Pt is understanding and agreeable with plan for discharge and follow-up with PCP. Vital Signs Vital Signs: Vital Signs Temperature 97.8 F 12/22/23 21:06 Pulse Rate 93 12/22/23 21:06 Respiratory Rate 18 12/22/23 21:06 Blood Pressure 165/94 H 12/22/23 21:06 Pulse Oximetry 98 12/22/23 21:06 Oxygen Delivery Room Air 12/22/23 21:06 Temperature 97.8 F 12/22/23 21:06 Pulse Rate 99 12/22/23 23:44 Respiratory Rate 16 12/22/23 23:44 Blood Pressure 143/87 H 12/22/23 23:44 Pulse Oximetry 97 12/22/23 23:44 Oxygen Delivery Room Air 12/22/23 22:17 Lab Data 12/22/23 22:01 12/22/23 22:01 Labs: Lab Results 12/22/23 12/22/23 Range/Units 22:01 22:14 WBC 11.4 H (4.5-10.0) K/mm3 RBC 5.05 (4.6-6.20) M/mm3 Hgb 15.7 (14.0-18.0) g/dL Hct 45.0 (42.0-52.0) % MCV 89.1 (80-100) fl MCH 31.1 (26-34) pg MCHC 34.9 (32-36) g/dl RDW 11.4 L (11.5-14.5) % Plt Count 318 (150-375) k/mm3 MPV 9.4 (7.4-10.4) fl Immature Gran % (Auto) 0.6 H (0-0.5) % Neut % (Auto) 65.0 (45.5-73.1) % Lymph % (Auto) 22.8 (18.3-44.2) % Harper % (Auto) 7.3 (2.6-8.5) % Eos % (Auto) 3.3 (0-4.4) % Baso % (Auto) 1.0 (0.2-1.2) % Lymph # (Auto) 2.61 (0.9-3.2) K/mm3 Harper # (Auto) 0.8 H (0.1-0.6) K/mm3 Eos # (Auto) 0.4 H (0-0.3) K/mm3 Baso # (Auto) 0.1 (0.0-0.1) K/mm3 Abs Immat Gr
--- NOTE | 2023-12-22 22:06 | ECG_ITS ---
Measurements Intervals [place] Rate: 76 P: 63 WA: 144 QRS: 75 QRSD: 96 T: 50 QT: 341 QTc: 385 Interpretive Statements SINUS RHYTHM BASELINE ARTIFACT COMPARED TO ECG 12/19/2023 14:50:03 NO SIGNIFICANT CHANGES Electronically Signed On 12-23-2023 18:21:57 INSPECTOR OUTSIDE [employer]ODUCTION by Shawn Huerta M.D.
[2023-12-22 22:08] LABS: Basophils Absolute Auto 0.1 K/mm3 (0.0-0.1); Eosinophils Absolute Auto 0.4 K/mm3 (0-0.3); Eosinophils Percent Auto 3.3 % (0-4.4); Hemoglobin 15.7 g/dL (14.0-18.0); Immature Granulocyte Absolute 0.07 K/mm3 (0.00-0.031); Immature Granulocyte Percent A 0.6 % (0-0.5); Lymphocytes Absolute Auto 2.61 K/mm3 (0.9-3.2); Lymphocytes Percent Auto 22.8 % (18.3-44.2); Mean Corpuscular HGB Conc 34.9 g/dl (32-36); Mean Corpuscular Hemoglobin 31.1 pg (26-34); Mean Corpuscular Volume 89.1 fl (80-100); Mean Platelet Volume 9.4 fl (7.4-10.4); Monocytes Absolute Auto 0.8 K/mm3 (0.1-0.6); Monocytes Percent Auto 7.3 % (2.6-8.5); Neutrophils Absolute Auto 7.4 K/mm3 (1.3-6.7); Platelet Count Result 318 k/mm3 (150-375); Red Blood Count 5.05 M/mm3 (4.6-6.20); Red Cell Distribution Width 11.4 % (11.5-14.5); White Blood Count 11.4 K/mm3 (4.5-10.0)
[2023-12-22] MEDS: ONDANSETRON INJ 4 MG/2 ML VIAL IV PUSH (22:11)
[2023-12-22] MEDS: MORPHINE SULFATE (*CRX) 4 MG/ML INJ IV PUSH (22:11)
[2023-12-22 22:15] VITALS: BP 156/94; PULSE 82; RESP 19; O2SAT 98
[2023-12-22 22:17] VITALS: PULSE 89; O2SAT 98
[2023-12-22 22:20] LABS: Alanine Aminotransferase 16 U/L (6-50); Albumin Level 4.3 g/dL (3.5-5.1); Alkaline Phosphatase 61 U/L (38-126); Anion Gap 7 mmol/L (8-16); Aspartate Amino Transferase 22 U/L (17-59); Bilirubin,Total 0.5 mg/dL (0.2-1.3); Blood Urea Nitrogen 9 mg/dL (9-20); CRP < 0.5 mg/dL (<1.0); Calcium 9.2 mg/dL (8.4-10.2); Carbon Dioxide 26 mmol/L (22-30); Chloride 104 mmol/L (98-107); Estimated CRCL calculation 95 ml/min; Estimated Glomerular Filt Rate > 60; Glucose 105 mg/dL (65-110); Lipase 73 U/L (23-300); Potassium 3.8 mmol/L (3.4-5.0); Sodium 137 mmol/L (137-145)
[2023-12-22 22:20] LABS: Appearance Urine Clear (Clear); Bilirubin Urine Negative (Negative); Blood Urine Negative (Negative); Color Urine Yellow (Yellow); Glucose Urine UA Negative (Negative); Ketones Urine Negative (Negative); Leukocyte Esterase Ur Negative LEU/UL (Negative); Nitrate Urine Negative (Negative); Protein Urine Negative (Negative); Specific Grav Ur 1.009 (1.001-1.035); Urobilinogen Urine 0.2 mg/dL (<2.0); pH Urine 6.5 (5.0-9.0)
[2023-12-22 22:21] VITALS: BP 156/77; PULSE 78; RESP 17; O2SAT 97
[2023-12-22 22:21] LABS: Add Urine Microscopic? NO
[2023-12-22 22:43] LABS: Influenza A QL RT-PCR Negative (Negative); Influenza B QL RT-PCR Negative (Negative); RSV RNA, RT-PCR Negative (Negative); SARS-CoV-2 RNA PCR Negative (Negative)
[2023-12-22] MEDS: KETOROLAC 15 MG/ML VIAL (*BKC) IV PUSH (22:55)
--- NOTE | 2023-12-22 23:14 | PC.NURSE ---
pt care and report given to CRIS Humphrey. all questions answered.
[2023-12-22 23:44] VITALS: BP 143/87; PULSE 99; RESP 16; O2SAT 97
== END 2023-12-22 23:46 | disposition home or self-care (01) ==
PROVIDERS: Emergency Provider Physician Assistant
DX: K52.9 Noninfective gastroenteritis and colitis, unspecified (principal); Z20.822 Contact with and (suspected) exposure to COVID-19
CPT/HCPCS: 36415; 71045; 74177; 80053; 81003; 83690; 85025; 86140; 87637; 93005; 96374; 96375; 99284; J1885; J2270; J2405; Q9967

== ENCOUNTER 2024-08-05 08:25 | Emergency (ER) | payer OTHER, BC, SELFPAY ==
--- NOTE | ~2024-08-05 | XR_ITS ---
3 VIEWS THORACIC SPINE Ordering provider: Mirella lAeman PA-C History: . mid back pain . Comparison: None. FINDINGS: VERTEBRAL BODIES: Normal height and alignment. No visible fracture or subluxation. DISK SPACES: Normal. SOFT TISSUES: Normal. IMPRESSION: No acute osseous abnormality of the thoracic spine. Reviewed, dictated and finalized at location A.
--- NOTE | ~2024-08-05 | XR_ITS ---
XR ribs LT 2V w CXR 2V Ordering provider: Mirella Aleman PA-C History: . left posterior rib pain . Comparison: December 22, 2023 FINDINGS: BONES: No acute rib fracture. MEDIASTINUM: The cardiac silhouette is not enlarged. LUNGS: No infiltrates, effusions or pneumothorax. OTHER: No free air under the diaphragm. IMPRESSION: 1. No acute osseous abnormality left ribs and chest. 2. No acute cardiopulmonary findings. Reviewed, dictated and finalized at location A.
[2024-08-05 08:27] VITALS: BP 141/79; PULSE 91; RESP 16; TEMP 36.8; O2SAT 98
--- NOTE | 2024-08-05 09:45 | ED.BACK ---
HPI - Back Pain/Injury General Chief Complaint: Back Pain/Injury Stated Complaint: upper back pain Time Seen by Provider: 08/05/24 09:40 Source: patient Mode of arrival: ambulatory Limitations: no limitations History of Present Illness HPI Narrative: This is a 29-year-old male that presents to the emergency department for left-sided upper back pain. Reports yesterday he was lifting a heavy beer old. Reached down and felt sudden onset pain in the left upper back. This is been constant since. Worse with certain movement and taking deep breaths. He has not taken anything for pain. Denies decreased ROM, numbness, chest pain, shortness of breath. Related Data Allergies Allergy/AdvReac Type Severity Reaction Status Date / Time amoxicillin [From Augmentin] AdvReac Diarrhea Verified 12/19/23 13:58 clavulanic acid AdvReac Diarrhea Verified 12/19/23 13:58 [From Augmentin] Review of Systems Review of Systems: CONSTITUTIONAL: Denies fever CARDIOVASCULAR: Denies chest pain RESPIRATORY: Denies dyspnea. MUSCULOSKELETAL: Reports back pain, and myalgia. NEUROLOGIC: Denies numbness, or weakness. All systems reviewed & are unremarkable except as noted in HPI and below PMFSH Past Medical History Medical History (Updated 08/05/24 @ 11:08 by Mirella Aleman PA-C) GERD with esophagitis Social History Social History Alcohol intake: current Gender identity (if verbalized by the patient): Male Exam Narrative: GENERAL: Well-appearing, well-nourished, and in no acute distress. HEAD: Normocephalic, atraumatic. EYES: EOMI. CHEST: Clear to auscultation. No respiratory distress. No wheezes rales or rhonchi HEART: Regular rate and rhythm. No murmur heard. Normal peripheral pulses. BACK: Tender to palpation of left latissimus dorsi muscle EXTREMITIES: Normal range of motion. No edema. Strength equal in bilateral upper extremities (5/5) SKIN: Warm, dry, no rash. NEURO: No focal deficits. Alert and oriented x3. PSYCH: Normal mood and affect Course Course Emergency Course: Patient updated on workup and agrees with plan of care Vital Signs Vital signs: Vital Signs Temperature 98.2 F 08/05/24 08:27 Pulse Rate 91 10/02/24 08:27 Respiratory Rate 16 08/05/24 08:27 Blood Pressure 141/79 H 08/05/24 08:27 Pulse Oximetry 98 08/05/24 08:27 Oxygen Delivery Room Air 08/05/24 08:27 Temperature 98.2 F 08/05/24 08:27 Pulse Rate 79 08/05/24 10:33 Respiratory Rate 20 08/05/24 10:33 Blood Pressure 115/91 H 08/05/24 10:33 Pulse Oximetry 99 08/05/24 10:33 Oxygen Delivery Room Air 08/05/24 08:27 MDM - Back Pain/Injury MDM Narrative Medical decision making narrative: Patient presents the emergency department for left upper back pain after a lifting injury yesterday. He is neurologically intact. X-rays of the rib/chest and thoracic spine without acute findings. Patient instructed on further care of muscle strain. He is to follow up with primary provider. He was given warnings to return to the ER Differential Diagnosis Differential diagnosis: Likely other ( muscle strain, muscle spasm, thoracic spondylosis) Imaging Data Radiologist's impression: ITS Impressions Ribs w/Chest X-Ray 08/05/24 10:18 IMPRESSION: 1. No acute osseous abnormality left ribs and chest. 2. No acute cardiopulmonary findings. Thoracic Spine X-Ray 08/05/24 10:32 IMPRESSION: No acute osseous abnormality of the thoracic spine. Critical Care Time Critical Care Time Critical Care Time: No Discharge Plan Discharge Clinical Impression: Muscle strain of upper back Patient Disposition: Home, Self-Care Condition: Stable Instructions: Muscle Strain (ED) Additional Instructions: Return to the ER if you experience weakness, numbness, or any other symptoms that are concerning to you Rest, use ice/heat, take anti
[2024-08-05] MEDS: diazePAM INJ (*CRX) 10 MG/2 ML SYRINGE 5 MG IM (10:24)
[2024-08-05] MEDS: KETOROLAC 30 MG/ML VIAL (*BKC) IM (10:24)
[2024-08-05] MEDS: ACETAMINOPHEN 500 MG TABLET 1000 MG PO (10:24)
[2024-08-05 10:33] VITALS: BP 115/91; PULSE 79; RESP 20; O2SAT 99
[2024-08-05 11:19] VITALS: BP 119/85; PULSE 85; RESP 16; O2SAT 100
== END 2024-08-05 11:22 | disposition home or self-care (01) ==
PROVIDERS: Emergency Provider Physician Assistant; PCP Family Medicine
DX: S29.012A Strain of muscle and tendon of back wall of thorax, initial encounter (principal); K21.00 Gastro-esophageal reflux disease with esophagitis, without bleeding; X50.0XXA Overexertion from strenuous movement or load, initial encounter
CPT/HCPCS: 71046; 71100; 72072; 96372; 99284; A9270; J1885; J3360